=== PATIENT | female | born 1995 | race Caucasian/White ===

== ENCOUNTER 2018-07-06 12:36 | Inpatient (IN) ==
[2018-07-06] MEDS ORDERED: KETOROLAC 10 MG TABLET PO PRN (13:52)
[2018-07-06] MEDS ORDERED: HYDROmorphone 2 MG/1 ML VIAL IV PRN (13:52)
[2018-07-06] MEDS ORDERED: BISACODYL 5 MG TABLET PO PRN (13:52)
[2018-07-06] MEDS ORDERED: ACETAMINOPHEN 325 MG TABLET PO PRN (13:52)
[2018-07-06] MEDS ORDERED: ONDANSETRON 4 MG/2 ML VIAL IV PRN ×2 (13:52→16:34)
[2018-07-06] MEDS ORDERED: PANTOPRAZOLE 40 MG TABLET PO SCH ×3 (14:00→21:00)
[2018-07-06] MEDS ORDERED: TISSUE ADHESIVE 1 EACH APPLICATOR TOP ONE (14:42)
[2018-07-06] MEDS ORDERED: BUPIVACAINE 0.5% 50 ML VIAL ONE (14:43)
[2018-07-06] MEDS ORDERED: LIDOCAINE 1%/EPI INJ 20 ML VIAL ONE (14:43)
[2018-07-06] MEDS ORDERED: MEROPENEM 1,000 MG VIAL IV ONE (14:53)
[2018-07-06] MEDS ORDERED: BALSALAZIDE DISODIUM 2250 MG PO SCH (15:00)
[2018-07-06] MEDS ORDERED: cefOXitin 2,000 MG in SYRINGE 1 EACH IV SCH (15:00)
[2018-07-06] MEDS: LACTATED RINGERS 1,000 ML IV SCH ×2 (15:02→23:48)
[2018-07-06] MEDS ORDERED: SEVOFLURANE 1 UNIT/15 MINUTE INH ONE (16:15)
[2018-07-06] MEDS ORDERED: PROPOFOL 200 MG/20 ML VIAL IV ONE (16:15)
[2018-07-06] MEDS ORDERED: MIDAZOLAM 2 MG/2 ML VIAL ONE (16:16)
[2018-07-06] MEDS ORDERED: ONDANSETRON 4 MG/2 ML VIAL ONE ×2 (16:16→16:32)
[2018-07-06] MEDS ORDERED: fentaNYL 100 MCG/2 ML VIAL ONE (16:16)
[2018-07-06] MEDS ORDERED: SUCCINYLCHOLINE 200 MG/10 ML VIAL ONE (16:16)
[2018-07-06] MEDS ORDERED: KETOROLAC 30 MG/1 ML VIAL ONE (16:16)
[2018-07-06] MEDS ORDERED: ROCURONIUM 100 MG/10 ML VIAL IV ONE (16:16)
[2018-07-06] MEDS ORDERED: HYDROmorphone 2 MG/1 ML VIAL ONE (16:32)
[2018-07-06] MEDS: HYDROmorphone 2 MG/1 ML VIAL IV PRN ×3 (16:35→16:52)
[2018-07-06] MEDS: cefOXitin 2,000 MG in SYRINGE 1 EACH IV SCH (20:54)
[2018-07-07] MEDS: cefOXitin 2,000 MG in SYRINGE 1 EACH IV SCH ×2 (04:41→10:40)
[2018-07-07 05:06] LABS: Basophils % 0.5 % (0.0-0.8); Eosinophils # 0.1 10*3/uL (0.0-0.87); Eosinophils % 0.7 % (0.00-10.9); Hematocrit 35.1 VOL% (35.7-47.0); Hemoglobin 11.6 GM/DL (12.0-16.0); Immature Granulocytes % 0.4 %; Immature Granulocytes Absolute 0.03 #; Lymphocytes # 2.2 10*3/uL (1.4-4.0); Lymphocytes % 26.7 % (21.3-54.2); Mean Corpuscular Hemoglobin 30 PG (27-34); Mean Corpuscular Volume 91.6 FL (87-102); Mean Platelet Volume 10.5 FL (9.6-12.0); Monocytes # 0.6 10*3/uL (0.11-0.8); Monocytes % 7.9 % (1.7-12.7); Neutrophils # 5.2 10*3/uL (1.4-7.4); Neutrophils % 63.8 % (38.7-73.9); Platelet Count 195 T/CUMM (130-400); Red Blood Count 3.83 MC/CUMM (3.8-5.5); Red Cell Distribution Width 13.2 % (9.3-17.3); White Blood Count 8.1 T/CUMM (4-12)
[2018-07-07 05:10] LABS: Calcium 8.4 MG/DL (8.5-10.1); Osmolality,Calculated 271.5 MOS/KG (273-304); Potassium 3.8 MMOL/L (3.5-5.1)
[2018-07-07] MEDS: LACTATED RINGERS 1,000 ML IV SCH (12:05)
[2018-07-07 12:10] VITALS: BP 110/59
== END 2018-07-07 13:00 | disposition home or self-care (01) | DRG 342 ==
LOC: N.ED 12:36 → N.EDINP 13:52 → N.4E 17:11
PROVIDERS: ADMIT Surgery; ATTEND Surgery